=== PATIENT | female | born 1970 | race African-American/Black ===

== ENCOUNTER 2017-01-23 20:30 | Emergency (ER) | payer OTHER ==
[~2017-01-23] VITALS: Ht 157.5 cm; Wt 98.2 kg
[~2017-01-23 20:30] MED LIST: HCTZ 25MG TAB25 MG PO; IMITREX50 MG PO; NO HOME MEDICATIONS; NORMODYNE100 MG PO; auralgan OT
[2017-01-23 20:40] VITALS: TEMP 98.9
[2017-01-23] MEDS ORDERED: NORCO 325 MG-51 TAB PO (22:17)
[2017-01-23] MEDS ORDERED: LEVAQUIN 5500 MG/TA1 PO (22:22)
[2017-01-23 22:42] VITALS: BP 186/100; PULSE 98
== END 2017-01-23 22:33 | disposition home or self-care (01) ==
LOC: COL.ER 20:30
DX: L02.31 Cutaneous abscess of buttock (principal); I10 Essential (primary) hypertension; Z88.0 Allergy status to penicillin; Z88.2 Allergy status to sulfonamides

== ENCOUNTER → 2017-03-27 | Outpatient (CLI) | payer OTHER ==
[~2017-03-27] MED LIST changes: +LEVAQUIN 5500 MG/TA1 PO; +NORCO 325 MG-51 TAB PO
== END ==
LOC: COL.LAB 16:45
DX: L02.212 Cutaneous abscess of back [any part, except buttock and flank] (principal)

== ENCOUNTER 2018-11-29 13:10 | Emergency (ER) | payer OTHER ==
[~2018-11-29] VITALS: Ht 157.5 cm; Wt 90.9 kg
[2018-11-29 13:22] VITALS: TEMP 98.6
[2018-11-29] MEDS ORDERED: EXCEDRIN1 TAB PO (14:00)
[2018-11-29] MEDS ORDERED: LEVAQUIN 750MG750 M1 PO (15:35)
[2018-11-29] MEDS ORDERED: HCTZ 25MG TAB25 MG PO (15:35)
[2018-11-29] MEDS ORDERED: TRANDATE 100MG100 MG PO (15:35)
[2018-11-29 15:50] VITALS: BP 191/107; PULSE 84
== END 2018-11-29 15:50 | disposition home or self-care (01) ==
LOC: COL.ER 13:10
DX: I10 Essential (primary) hypertension (principal); J01.90 Acute sinusitis, unspecified

== ENCOUNTER 2019-05-01 19:26 | Emergency (ER) | payer OTHER ==
[~2019-05-01] VITALS: Ht 157.5 cm; Wt 95.5 kg
[~2019-05-01 19:26] MED LIST changes: +EXCEDRIN1 TAB PO; +LEVAQUIN 750MG750 M1 PO; +TRANDATE 100MG100 MG PO
[2019-05-01 19:30] VITALS: TEMP 99
[2019-05-01] MEDS ORDERED: XALATAN EYE DROPS OD (19:53)
[2019-05-01] MEDS ORDERED: VALISONE OI 15GM TP (19:57)
[2019-05-01] MEDS ORDERED: MEDROL 4MG DOSPA4 MG PO (19:57)
[2019-05-01 21:32] VITALS: BP 191/111; PULSE 70
== END 2019-05-01 21:32 | disposition home or self-care (01) ==
LOC: COL.ER 19:26
DX: L30.1 Dyshidrosis [pompholyx] (principal); I10 Essential (primary) hypertension
CPT/HCPCS: J7512

== ENCOUNTER 2019-10-07 09:14 | Emergency (ER) | payer OTHER ==
[~2019-10-07] VITALS: Ht 157.5 cm; Wt 95.0 kg
[~2019-10-07 09:14] MED LIST changes: +MEDROL 4MG DOSPA4 MG PO; +VALISONE OI 15GM TP; +XALATAN EYE DROPS OD
[2019-10-07 09:32] VITALS: TEMP 98.6
[2019-10-07] MEDS ORDERED: NORMODYNE100 MG PO (09:36)
[2019-10-07 10:54] VITALS: BP 143/74; PULSE 72
== END 2019-10-07 10:54 | disposition home or self-care (01) ==
LOC: COL.ER 09:14
DX: J11.1 Influenza due to unidentified influenza virus with other respiratory manifestations (principal); I10 Essential (primary) hypertension

== ENCOUNTER → 2021-03-06 | Outpatient (CLI) | payer BC | LOC: MHCPAIN 13:05 | DX: M47.812 Spondylosis without myelopathy or radiculopathy, cervical region (principal); M54.2 Cervicalgia; M54.12 Radiculopathy, cervical region; G89.29 Other chronic pain | CPT/HCPCS: G0463 ==

== ENCOUNTER → 2021-03-15 | Outpatient (CLI) | payer BC | LOC: MHCPAIN 11:11 | DX: M47.812 Spondylosis without myelopathy or radiculopathy, cervical region (principal); M54.12 Radiculopathy, cervical region | CPT/HCPCS: J1100; Q9967 ==

== ENCOUNTER → 2021-04-11 | Outpatient (CLI) | payer BC | LOC: MHCPAIN 12:27 | DX: M47.812 Spondylosis without myelopathy or radiculopathy, cervical region (principal); M54.12 Radiculopathy, cervical region; M54.5 Low back pain; M25.552 Pain in left hip | CPT/HCPCS: G0463 ==

== ENCOUNTER 2021-05-03 11:15 | Outpatient (RCR) | payer BC | END 2021-06-15 09:32 | disposition home or self-care (01) | LOC: WSPT 11:15 | DX: M54.5 Low back pain (principal) ==

== ENCOUNTER 2022-12-13 08:26 | Emergency (ER) | payer SELFPAY ==
[~2022-12-13] VITALS: Ht 157.5 cm; Wt 100.0 kg
[2022-12-13 08:53] VITALS: TEMP 98.6
[2022-12-13 09:44] LABS: COLLECTION METHOD CLEAN CATCH
[2022-12-13 09:51] LABS: MUCOUS Present (NOT PRESENT); URINE BACTERIA Rare /hpf (NONE SEEN); URINE RBC 20-50 /hpf (0-2)
[2022-12-13 09:52] LABS: URINE APPEARANCE Hazy (CLEAR/HAZY); URINE COLOR Yellow (YELLOW)
[2022-12-13 09:53] LABS: PH 5.5 (5.0-8.5); URINE BLOOD 3+ (NEGATIVE); URINE GLUCOSE Negative (NEGATIVE); URINE KETONE TRACE (NEGATIVE); URINE NITRATE Negative (NEGATIVE); URINE PROTEIN(semi-quant) 1+ (NEGATIVE); URINE UROBILINOGEN 0.2 E.U/dL (0.2-1.0)
[2022-12-13 10:24] LABS: BASO % 0.4 % (0.0-2.0); EOS # 0.3 K/mm3 (0.0-0.7); EOS % 4.4 % (0.0-4.0); GRAN # 3.6 K/mm3 (1.4-6.5); HEMATOCRIT 47.5 % (37.0-47.0); HEMOGLOBIN 16.3 g/dl (12.5-16.0); LYMPH # 2.8 K/mm3 (1.2-3.4); LYMPH % 36.7 % (20.0-51.0); MEAN CELL VOLUME 77 fl (80.0-100.0); MEAN CORPUSCULAR HEMOGLOBIN 26 pg (27-31); MEAN CORPUSCULAR HGB CONC 34 g/dl (33.0-37.0); MEAN PLATELET VOLUME 9.4 fl (7.4-10.4); MONO # 0.8 K/mm3 (0.1-0.6); MONO % 10.2 % (1.7-9.3); PLATELET COUNT 374 K/mm3 (130-400); RED BLOOD COUNT 6.19 M/mm3 (4.10-5.30); REDCELL DISTRIBUTION WIDTH-CV 13.5 % (11.5-14.5)
[2022-12-13 10:38] LABS: ALBUMIN 4.4 gm/dL (3.5-5.0); BILIRUBIN,TOTAL 0.5 mg/dL (0.2-1.2); CALCIUM 10.3 mg/dL (8.4-10.2); CREATININE, serum 0.86 mg/dL (0.57-1.11); POTASSIUM 3.5 mmol/L (3.5-4.5); TOTAL PROTEIN 7.9 gm/dL (6.2-8.1)
[2022-12-13] MEDS ORDERED: FLEXERIL 1010 MG/TAB PO (12:56)
[2022-12-13] MEDS ORDERED: NORCO 325 MG-51 TAB PO (12:56)
[2022-12-13 13:41] VITALS: BP 172/88; PULSE 72
== END 2022-12-13 13:11 | disposition home or self-care (01) ==
LOC: COL.ER 08:26
PROVIDERS: Nurse Practitioner Family
DX: M54.50 Low back pain, unspecified (principal); R10.9 Unspecified abdominal pain; Z28.310 Unvaccinated for COVID-19
CPT/HCPCS: J1885; J2270; J2405